=== PATIENT | female | born 1975 | race Caucasian/White ===

== ENCOUNTER 2020-04-15 10:02 | Emergency (ER) | payer OTHER ==
[~2020-04-15] VITALS: Ht 162.6 cm; Wt 94.8 kg
[2020-04-15 10:10] VITALS: Ht 162.6 cm; Wt 94.8 kg
[2020-04-15 12:07] VITALS: BP 110/78
== END 2020-04-15 12:07 | disposition home or self-care (01) ==
LOC: ED 10:02
DX: S93.402A Sprain of unspecified ligament of left ankle, initial encounter (principal); S83.91XA Sprain of unspecified site of right knee, initial encounter; S20.211A Contusion of right front wall of thorax, initial encounter; X50.1XXA Overexertion from prolonged static or awkward postures, initial encounter; Y93.89 Activity, other specified; Y92.89 Other specified places as the place of occurrence of the external cause; Y99.8 Other external cause status
CPT/HCPCS: Q0092